=== PATIENT | female | born 1930 | race Caucasian/White ===

== ENCOUNTER → 2020-08-07 | Outpatient (CLI) | payer MEDICARE, BC ==
[~2020-08-07] MED LIST: ALDACTONE25 MG PO; CONSTULOSE10 GM/15 M PO; CYMBALTA 20 MG20 MG PO; DONEPEZIL HCL5 MG PO; ELIQUIS 5 MG TAB5 MG PO; ENEMA BAG1 EAC1 PR; FLONASE 0.05% N16 GM; GAVILAX17 GM PO; IPRAT-ALBUT 0.5-3 ML NEB; ISORDIL TAB 1010 MG PO; LANTUS100 UNIT/1 SC; LINZESS145 MCG PO; NOVOLOG 10100 UNITS2 SC; OMNICEF 300 MG300 MG PO; RISPERDAL 0.20.25 MG PO; TOPROL XL 100100 MG PO; ULTRAM50 MG PO; VITAMIN D PO; ZOFRAN ODT 4 MG4 MG PO
== END ==
LOC: LAB 19:09
DX: N39.0 Urinary tract infection, site not specified (principal); R82.998 Other abnormal findings in urine
CPT/HCPCS: 81001; 87077; 87086; 87186